=== PATIENT | male | born 1945 | race Caucasian/White ===

== ENCOUNTER → 2017-03-14 | Outpatient (CLI) | payer OTHER ==
[~2017-03-14] MED LIST: AMLODIPINE BESY10 MG PO; ASPIRIN PO; ASPIRIN81 M1 PO; ASPIRIN81 M2 PO; COZAAR100 MG PO; HYDROCHLOROTHIA25 MG PO; HYDROCODON-ACE1 EAC7 PO; IMDUR-ER60 M1 PO; LIPITOR PO; MULTI-VITAMIN1 TAB PO; NEURONTIN100 MG PO; NIASPAN PO; NITROSTAT0.4 MG SL; PEPCID AC20 M2 PO; PLAVIX PO; PROTONIX PO; RANEXA500 MG PO; SIMVASTATIN40 MG PO; TYLENOL325 M1 PO; ZOCOR20 MG PO
--- NOTE | ~2017-03-14 | CT114 ---
[facility] A Service of [facility] RADIOLOGY TEXT RESULTS PATIENT: JAVIER COLVIN LOCATION: [facility] : 49 UNIT #: [id number] AGE: [address]: Leonor Chacon PA-C SEX: M ORDER DR: [id number] [facility]. [place], [place] [address] [id number] O MR#: [id number] Acc #: [id number] NAME: JAVIER COLVIN : 1945 SEX: M STUDY DATE/TIME: 03/14/2017 14:22 UNIT: [facility] ROOM: STUDY DESCRIPTION: CT Soft Tissue Neck W Cont Attending Physician: Leonor Chacon P.A.-C. Referring Physician: Leonor Chacon P.A.-C. Ordering Physician: Staff Doctor Not On Primary Care Physician: No Primary Care Physician MEDICAL IMAGING REPORT This report is preliminary unless electronic signature is present EXAM CT neck INDICATIONS Chronic lymphocytic leukemia. Squamous cell carcinoma. Observation for metastatic disease. Restaging. TECHNIQUE CT of the neck soft tissue utilizing 100 mL Isovue-370 IV contrast. Coronal and sagittal reconstructions were obtained. This CT exam was performed with one or more of the following radiation dose reduction techniques: automatic control, adjustment of mA and/or kV according to patient size, and iterative reconstruction. COMPARISON Concurrent CT chest abdomen and pelvis dated 03/14/[address] neck dated 09/07/2014 and 06/07/2016. FINDINGS No pathologically enlarged cervical lymph nodes. Please refer to a separately dictated report for details on the lymphadenopathy in the chest. The nasopharynx, oropharynx, and hypopharynx are unchanged. Laryngeal soft tissues are similar to the prior study. Central airways are patent. Thyroid gland enhances homogeneously. 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 This is at least a 90% luminal stenosis. Visualized paranasal sinuses and the mastoid air cells are within normal limits. No acute osseous abnormalities. IMPRESSION 1. No evidence of metastatic disease in the neck. Please refer to a [facility] A Service of [facility] RADIOLOGY TEXT RESULTS PATIENT: JAVIER COLVIN LOCATION: [facility] : [birth year] UNIT #: [id number] AGE: [address]: Leonor Chacon PA-C SEX: M ORDER DR: separately dictated report on the chest and abdomen. 2. Severe stenosis of the proximal left internal carotid artery estimated at greater than 90%. Dictated by... Cayden Steen M.D. THIS IS AN ELECTRONICALLY VERIFIED REPORT Cayden Steen M.D. at 03/14/2017 5:55 PM KARMA/alisa TD: 03/14/2017 16:38 JOB #: [id number] MEDICAL IMAGING REPORT Page 1 of 1 COPY
--- NOTE | ~2017-03-14 | CT2 ---
[facility] A Service of [facility] RADIOLOGY TEXT RESULTS PATIENT: JAVIER COLVIN LOCATION: [facility] : 49 UNIT #: [id number] AGE: [address]: Leonor Chacon PA-C SEX: M ORDER DR: [id number] [facility] [address] [facility]. [place], [place] [address] [id number] O MR#: [id number] Acc #: [id number] NAME: JAVIER COLVIN : 1945 SEX: M STUDY DATE/TIME: 03/14/2017 14:22 UNIT: [facility] ROOM: STUDY DESCRIPTION: CT Abd and Pelv W Cont Attending Physician: Leonor Chacon P.A.-C. Referring Physician: Leonor Chacon P.A.-C. Ordering Physician: Christopher Not Listed Primary Care Physician: No Primary Care Physician MEDICAL IMAGING REPORT This report is preliminary unless electronic signature is present EXAM CT abdomen and pelvis, with contrast, 03/14/2017. HISTORY Chronic lymphocytic leukemia. Metastatic squamous cell carcinoma. Observation for metastatic disease. Restaging. TECHNIQUE CT of the abdomen and pelvis with p.o. and IV contrast (100 mL of Isovue-370 IV contrast). Coronal and sagittal reconstructions were obtained. This CT exam was performed with one or more of the following radiation dose reduction techniques: automatic exposure control, adjustment of mA and/or kV according to patient size, and iterative reconstruction. COMPARISON CT chest, 06/07/2016 FINDINGS Adenopathy in the upper abdomen has increased since the prior study. There are some periportal lymph nodes that have increased in size. An index node measures 2.6 x 1.6 cm, compared to 2 x 1.3 cm. A second slightly more inferior nodule measures 2.7 x 2 cm, compared to 2.6 x 1.7 cm. There is a retroperitoneal lymph node measuring 1.1 cm in short axis, compared to 1.0 cm previously. There is a nodule near the splenic hilum that measures 1.4 cm, compared to 1.1 cm in short axis. No focal abnormalities are identified in the liver. The pancreas, spleen, adrenal glands, and kidneys are within normal limits. No hydronephrosis. The bowel is not dilated. There are some left-sided colonic diverticula. No diverticulitis. [facility] A Service of [facility] RADIOLOGY TEXT RESULTS PATIENT: JAVIER COLVIN LOCATION: [facility] : 49 UNIT #: [id number] AGE: [address]: Leonor Chacon PA-C SEX: M ORDER DR: There is diffuse atherosclerotic disease in the abdominal aorta and the abdominal aortic branches. PELVIS: There are a few borderline enlarged pelvic lymph nodes. A 1.3-cm short axis external iliac lymph node is noted. There is a left external iliac lymph node measuring 1.0 cm in short axis. No acute osseous abnormalities. IMPRESSION 1. Progression of metastatic adenopathy in the upper abdomen. 2. Slightly enlarged pelvic lymph nodes may also represent metastatic disease. Dictated by... Cayden Steen M.D. THIS IS AN ELECTRONICALLY VERIFIED REPORT Cayden Steen M.D. at 03/14/2017 5:55 PM KARMA/aysha TD: 03/14/2017 16:28 JOB #: [id number] MEDICAL IMAGING REPORT Page 1 of 1 COPY
--- NOTE | ~2017-03-14 | CT55 ---
[facility] A Service of [facility] RADIOLOGY TEXT RESULTS PATIENT: JAVIER COLVIN LOCATION: [facility] : 49 UNIT #: [id number] AGE: [address]: Leonor Chacon PA-C SEX: M ORDER DR: [id number] [place], [place] [address] [id number] O MR#: [id number] Acc #: [id number] NAME: JAVIER COLVIN : 1945 SEX: M STUDY DATE/TIME: 03/14/2017 14:22 UNIT: [facility] ROOM: STUDY DESCRIPTION: CT Chest W Con Attending Physician: Leonor Chacon P.A.-C. Referring Physician: Leonor Chacon P.A.-C. Ordering Physician: Physician Non-Staff Primary Care Physician: Primary Care Physician No MEDICAL IMAGING REPORT This report is preliminary unless electronic signature is present EXAM CT chest INDICATIONS Chronic lymphocytic leukemia. Metastatic squamous cell carcinoma. Observation for metastatic disease. Restaging. TECHNIQUE CT of the chest utilizing 100 mL Isovue-370 IV contrast. Coronal and sagittal reconstructions were obtained. COMPARISON Concurrent CT abdomen and pelvis dated 03/14/[address] chest dated 06/07/2016. FINDINGS The metastatic adenopathy in the chest has increased since the prior study. An index precarinal lymph node measures 2.1 x 1 cm, compared to 1.8 x 0.8 cm. A right hilar lymph node measures 3.2 x 2.1 cm compared to 1.7 x 1.5 cm. A right axillary lymph node conglomeration measures 2.6 x 1.8 cm, compared to 2.1 x 1.2 cm. Non index lymph nodes have slightly increased in size as well. No pericardial or pleural effusion. Thoracic aorta is normal in caliber. There is background emphysema. There is a pulmonary nodule/inferior right hilar lymph node measuring up to 1.3 cm compared to 1 cm previously. Please refer to separately dictated report for details on the upper abdomen. No acute osseous abnormalities. IMPRESSION [facility] A Service of [facility] RADIOLOGY TEXT RESULTS PATIENT: JAVIER COLVIN LOCATION: [facility] : 49 UNIT #: [id number] AGE: [address]: Leonor Chacon PA-C SEX: M ORDER DR: Increased size of mediastinal, hilar, and axillary lymphadenopathy consistent with disease progression. Dictated by... Cayden Steen M.D. THIS IS AN ELECTRONICALLY VERIFIED REPORT Cayden Steen M.D. at 03/14/2017 5:55 PM KARMA/linda TD: 03/14/2017 16:21 JOB #: [id number] MEDICAL IMAGING REPORT Page 1 of 1 COPY
[2017-03-14 16:01] LABS: POC - CREATININE 1.39 mg/dL (0.64-1.27)
== END | disposition home or self-care (01) ==
LOC: CCAT 12:41
PROVIDERS: Physician Assistant
DX: C77.2 Secondary and unspecified malignant neoplasm of intra-abdominal lymph nodes (principal); C91.10 Chronic lymphocytic leukemia of B-cell type not having achieved remission; I65.22 Occlusion and stenosis of left carotid artery
CPT/HCPCS: 70491; 71260; 74177; 82565; Q9967